=== PATIENT | male | born 1985 | race American Indian/Alaskan Native ===

== ENCOUNTER 2018-02-15 09:13 | Emergency (ER) | payer SELFPAY ==
[2018-02-15 10:03] LABS: Basophils % (Auto) 0.3 % (0.0-1.8); Hematocrit 41.5 % (35.5-45.6); Hemoglobin 14.3 gm/dl (11.8-15.2); Lymphocytes # (Auto) 1.8 K/mm3 (1.2-5.4); Lymphocytes % (Auto) 17.9 % (13.4-35.0); Mean Corpuscular HGB Conc 35 % (32-34); Mean Corpuscular Hemoglobin 30 pg (28-32); Mean Corpuscular Volume 88 fl (84-94); Monocytes # (Auto) 0.8 K/mm3 (0.0-0.8); Monocytes % (Auto) 7.4 % (0.0-7.3); Platelet Count 228 K/mm3 (140-440); Red Blood Count 4.72 M/mm3 (3.65-5.03); Red Cell Distribution Width 13.7 % (13.2-15.2)
[2018-02-15 10:11] LABS: BUN/Creatinine Ratio 10; Blood Urea Nitrogen 10 mg/dL (9-20); Hemolysis Index 4
[2018-02-15] MEDS ORDERED: NACL 0.9% 1000 ML 2,000 ML IV ONE (10:30)
[2018-02-15] MEDS ORDERED: ATIVAN IV ONE ×2 (10:30→11:46)
[2018-02-15] MEDS ORDERED: APRESOLINE IV ONE (10:31)
[2018-02-15] MEDS ORDERED: TYLENOL PO PRN (10:33)
[2018-02-15] MEDS ORDERED: MILK OF MAGNESIA PO PRN (10:33)
[2018-02-15] MEDS ORDERED: ALUM-MAG HYDROX-SIMETH 200-200-20MG/5ML PO PRN (10:33)
--- NOTE | 2018-02-15 10:38 | Emergency Department Report ---
HPI - General Chief Complaint: Psych Time Seen by Provider: 02/15/18 09:46 - HPI HPI: The patient is a 33-year-old male with a significant history of schizophrenia, who presents for evaluation of mental status. The patient report constant and severe paranoia and hallucinations since last night, 12 hours ago, exacerbated with illicit drug use. The patient admits to noncompliance with anti-psychotic regimen for the past 2 weeks. The patient denies fever, headache, unexplained weight loss or weight gain, heat or cold intolerance, skin, hair, or nail changes, neuro deficits, homicidal ideations, or suicidal ideations. ED Past Medical Hx - Past Medical History Hx Asthma: Yes Additional medical history: Schizophrenia - Surgical History Past Surgical History?: No - Social History Smoking Status: Current Every Day Smoker Substance Use Type: Other ED Review of Systems ROS: Stated complaint: MENTAL HEALTH EVAL Other details as noted in HPI Constitutional: denies: fever ENT: denies: throat or neck pain Respiratory: denies: cough, shortness of breath Cardiovascular: denies: chest pain Endocrine: denies unexplained weight loss or gain Gastrointestinal: denies: abdominal pain, nausea Genitourinary: denies: dysuria Musculoskeletal: denies: leg swelling Skin: denies: rash Neurological: denies: headache Hematological/Lymphatic: denies: easy bleeding or easy bruising Psych: reports sadness or hopelessness Physical Exam - Physical Exam Vital Signs: Vital Signs 02/15/18 09:24 Temperature 98.0 F Pulse Rate 140 H Respiratory 20 Rate Blood Pressure 208/103 O2 Sat by Pulse 100 Oximetry Physical Exam: General: well-nourished, well-developed, no acute distress Head: Normocephalic, atraumatic Eyes: normal sclera ENT: Mucous membranes are pale and dry Neck: trachea midline, neck supple, No neck stiffness, no cervical adenopathy Respiratory: Breath sounds equal bilaterally, no wheezing, rales, or rhonchi Cardio: S1 and S2 present, no murmurs, rubs, gallops, capillary refill is delayed Abdomen: Normoactive bowel sounds, soft abdomen, no tenderness Musc: No pitting edema Skin: No rash Neuro: no facial drooping, normal speech Psych: Flat affect, poor insight, delusional, positive hallucinations ED Course Vital Signs 02/15/18 09:24 Temperature 98.0 F Pulse Rate 140 H Respiratory 20 Rate Blood Pressure 208/103 O2 Sat by Pulse 100 Oximetry ED Medical Decision Making - Lab Data Result diagrams: 02/15/18 09:40 02/15/18 09:40 - Medical Decision Making The patient was seen and examined by myself. The patient is placed on a registered nurse cardiac telemetry and continuous pulse ox. On initial evaluation, the patient was found to be in no distress, although with mildly elevated blood pressure, tachycardia and signs of dehydration on exam. IV access is established and the patient given a 2 L normal saline fluid bolus for treatment of his tachycardia, and IV hydralazine for treatment of his elevated blood pressure. Labs are obtained. Lab results are grossly unremarkable. The patient is reevaluated found to have resolution of tachycardia and hypertension. The patient is medically clear. Mental health is consulted. Mental health evaluates the patient and agrees that the patient is exhibiting signs consistent with acute psychosis secondary to schizophrenia. A 1013 is completed. The patient will be admitted to a psychiatric facility once bed placement is obtained. Critical care attestation.: If time is entered above; I have spent that time in minutes in the direct care of this critically ill patient, excluding procedure time. ED Disposition Clinical Impression: Acute psychosis, Acute schizophrenia, Dehydration Disposition: [id number]/TX-65 PSY HOSP/PSY UNIT Is pt being admited?: No Does the pt Need Aspirin: No Condition: Serious Referrals: PRIMARY CARE [Primary Care Provider] - 3-5 Days Time of Disposition: 10:33
[2018-02-15] MEDS ORDERED: NORMODYNE IV ONE (11:46)
[2018-02-15 11:56] LABS: Bilirubin,Urine NEG (Negative); Blood,Urine NEG (Negative); Color,Urine Straw (Yellow); Protein,Urine <15 mg/dL mg/dL (Negative); Urobilinogen,Urine < 2.0 mg/dL (<2.0)
[2018-02-15 12:04] LABS: Amphetamine Screen,Urine PRESUMPTIVE NEGATIVE; Benzodiazepines Screen,Urine PRESUMPTIVE NEGATIVE; Cannabinoid Screen,Urine PRESUMPTIVE NEGATIVE; Cocaine Screen,Urine PRESUMPTIVE NEGATIVE; Methadone Screen,Urine PRESUMPTIVE NEGATIVE; Opiate Screen,Urine PRESUMPTIVE NEGATIVE
--- NOTE | 2018-02-15 23:12 | Consultation ---
History of Present Illness - Reason for Consult Consult date: 02/15/18 Reason for consult: Initial Psychiatric Evaluation - History of Present Psychiatric Illness Patient is a 33-year-old male with a significant history of schizophrenia, who presents for evaluation of mental status. Patient has a past psychiatric history of MDD. Currently, he reports constant and severe paranoia and ongoing auditory hallucinations, exacerbated with illicit drug use. The patient admits to noncompliance with anti-psychotic regimen for the past 2 weeks. Today the patient presents cooperative but anxious during the assessment. He states, " I'm in here because of the pills. I have been taken 8 to 9 pills a day for the past 3 months." Patient reports decrease sleep, appetite, and energy. Patient believes that others are out to harm him. He reports the voices are saying, " We are going to kill you. Watch out." Current Psychiatric Medications: Patient denies. Past Psychiatric History: MDD ( Age 14); No outpatient psychiatrist; 3 previous inpatient psychiatric hospitalizations ( [facility]); 2 previous suicide attempts ( overdose, jumped out of car). Past Psychiatric Medication Trials: " I can't remember." History of Trauma/Abuse: Patient denies sexual, physical, and mental abuse. Drug/Alcohol Abuse History: " Pills"- amount/frequency- 8-9 pills daily, method - by mouth, last use- " 2 months ago", first use- . UDS negative. Social History: 9th grade- highest level of education; unemployed- no source of income; good support system- " family"; 6 children; .; resident-unknown. Family History: Aunt- " take pills" Medications and Allergies Allergies Allergy/AdvReac Type Severity Reaction Status Date / Time No Known Allergies Allergy Verified 08/04/15 23:40 Home Medications Medication Instructions Recorded Confirmed Last Taken Type risperiDONE [Risperdal] 2 mg PO DAILY 02/15/18 02/15/18 02/15/18 History Active Meds: Active Medications Acetaminophen (Tylenol) 650 mg PO Q4HR PRN PRN Reason: Pain MILD(1-3)/Fever >100.5/BENOIT Al Hydrox/Mg Hydrox/Simethicone (Alum-Mag Hydrox-Simeth 149-166-08sy/5ml) 30 ml PO Q4HR PRN PRN Reason: Indigestion Magnesium Hydroxide (Milk Of Magnesia) 30 ml PO Q12HR PRN PRN Reason: Constipation Risperidone (Risperdal) 2 mg PO DAILY JAIDEN Mental Status Exam - Vital signs Last Vital Signs Temp 97.8 F 02/15/18 20:36 Pulse 77 02/15/18 20:36 Resp 16 02/15/18 20:36 BP 137/88 02/15/18 20:36 Pulse Ox 99 02/15/18 20:36 - Exam Narrative exam: Mental Status Exam General Appearance: Causally Dressed-hospital gown Eye Contact: Intermittent Orientation: Alert and oriented x 1 (person) Attitude/Behavior: Cooperative, evasive Sensorium: Distracted Psychomotor & Musculoskeletal Activity: Ambulatory Mood: Anxious Speech/Language: Slow, delayed Thought Processes: Blocking, circumstantial Thought Content: Impoverished, paranoid- secondary to AH's Perception: + AH's " we are going to kill you . Watch out." Concentration/Attention: Impaired Suicidal Ideations/Plan: Patient denies. Homicidal Ideations/Plan: Patient denies. Judgment: Poor Insight: Poor Results Result Diagrams: 02/15/18 09:40 02/15/18 09:40 Abnormal lab results 02/15/18 02/15/18 02/15/18 Range/Units 09:40 09:40 09:40 MCHC (32-34) % [place] % (Auto) (0.0-7.3) % Seg Neutrophils % (40.0-70.0) % Potassium 3.3 L (3.6-5.0) mmol/L Glucose 114 H (75-100) mg/dL Salicylates < 0.3 L (2.8-20.0) mg/dL Acetaminophen < 5.0 L (10.0-30.0) ug/mL 02/15/18 Range/Units 09:40 MCHC 35 H (32-34) % [place] % (Auto) 7.4 H (0.0-7.3) % Seg Neutrophils % 74.4 H (40.0-70.0) % Potassium (3.6-5.0) mmol/L Glucose (75-100) mg/dL Salicylates (2.8-20.0) mg/dL Acetaminophen (10.0-30.0) ug/mL All other labs normal. Assessment and Plan Assessment and plan: Impression: PPHx MDD. Psychosis unspecified. Today the patient presents cooperative but anxious during the assessment. Thought blocking noted. Patient endorses paranoid delusions and AH's. Patient denies VH's and SI/HI's. UDS negative. DDx: r/o schizophrenia r/o schizoaffective disorder Recommendation/Plan: 1. Continue 1013 with placement to inpatient psychiatric services. 2. Continue Risperdal 2mg po Qdaily mood/psychosis. Discussed metabolic side effects of Risperdal. 3. Will monitor psychosis, mood, sleep, appetite, compliance, and side effects.
[2018-02-16] MEDS ORDERED: GEODON IM ONE (08:19)
[2018-02-16] MEDS ORDERED: NON-FORMULARY (Risperidone [Risperdal] 2 MG) PO SCH (10:00)
[2018-02-16] MEDS: RisperDAL PO SCH (10:01)
--- NOTE | 2018-02-16 13:01 | Progress Note ---
Subjective - Reason for Consult Consult date: 02/16/18 Reason for consult: Psychiatry Follow-up - Chief Complaint Chief complaint: "I can't take it" 33-year-old male presenting to the ER [facility] a mental health evaluation. The patient is emotional during the assessment. He paused several times before he would answer questions. He was observed slapping both side of his head and stated, "I can't take it anymore." He would not answer questions when he was talking to himself. No gestures of SI/HI's. Mental Status Exam - Vital signs Last Vital Signs Temp 98.3 F 02/16/18 07:29 Pulse 93 H 02/16/18 07:29 Resp 18 02/16/18 07:29 BP 132/73 02/16/18 07:29 Pulse Ox 96 02/16/18 07:29 - Exam Narrative exam: MSE: Appearance: emotional Behavior: unable to assess Speech: regular rate and tone Mood: anxious Affect: congruent to mood Thought Process: possibly thought blocking Thought Content: no gestures of SI/HI's, paranoia Motor Activity: sitting up in the bed Cognition: A/O x 3 Insight: poor Judgment: poor Assessment and Plan Impression: Unspecified Psychosis. Today the patient is emotional during the assessment. UDS is negative. DDx: Schizophrenia, R/O Schizoaffective DO, R/O Bipolar DO with psychosis Recommendation/Plan: Continue 1013 with placement to inpatient psy services. Continue Risperdal 2 mg PO HS for psychosis and start Buspar 7.5 mg PO BID for anxiety. Attempted to discuss possible metabolic side effects of Risperdal with the patient.
[2018-02-16] MEDS ORDERED: BUSPAR PO SCH (14:00)
[2018-02-16] MEDS: BUSPAR PO SCH ×2 (14:59→22:19)
[2018-02-17 01:18] VITALS: BP 156/103
[2018-02-17] MEDS ORDERED: HCTZ PO SCH (01:20)
[2018-02-17] MEDS: BUSPAR PO SCH (10:26)
[2018-02-17] MEDS: RisperDAL PO SCH (10:29)
--- NOTE | 2018-02-17 13:04 | Progress Note ---
Subjective - Reason for Consult Consult date: 02/17/18 Reason for consult: Psychiatry Follow-up - Chief Complaint Chief complaint: "I'm going to " 33-year-old male presenting to the ER [facility] a mental health evaluation. The patient is still emotional during the assessment. He stated that he will soon. He was observed pacing around the padded room with the hospital sheets wrapped around his body. He denies HI's and AVH's. No indications of side effects of his medication. Mental Status Exam - Vital signs Last Vital Signs Temp 0 F L 02/17/18 10:34 Pulse 109 H 02/16/18 22:00 Resp 19 02/17/18 10:34 BP 156/103 02/16/18 22:00 Pulse Ox 99 02/16/18 22:00 - Exam Narrative exam: MSE: Appearance: wearing hospital bed sheets Behavior: regular eye contact Speech: regular rate and tone Mood: Affect: congruent to mood Thought Process: tangential Thought Content: no gestures of SI/HI's, paranoia Motor Activity: sitting up in the bed Cognition: A/O x 3 Insight: poor Judgment: poor Assessment and Plan Impression: Unspecified Psychosis. Today the patient is still emotional during the assessment. UDS is negative. DDx: Schizophrenia, R/O Schizoaffective DO, R/O Bipolar DO with psychosis Recommendation/Plan: Continue 1013 with placement to [facility] today.
== END 2018-02-17 11:15 ==
LOC: ED 09:13 → EEVIPCON 09:13 → ED 02-17 11:15
DX: F23 Brief psychotic disorder (principal); E86.0 Dehydration; J45.909 Unspecified asthma, uncomplicated; F17.200 Nicotine dependence, unspecified, uncomplicated; F32.9 Major depressive disorder, single episode, unspecified
CPT/HCPCS: 36415; 80048; 80307; 81001; 85025; 93005; 93010; 96361; 96372; 96374; 96375; 96376; 99285; G0480; J0360; J2060; J3486; J7030; 80320